=== PATIENT | female | born 1960 | race Hispanic/Latino ===

== ENCOUNTER 2020-02-13 14:25 | Emergency (ER) | payer OTHER ==
[2020-02-13] MEDS ORDERED: ACETAMINOPHEN EXTRA STRENGTH 500 MG TABLET ONE (15:24)
[2020-02-13 15:57] LABS: BASOPHILS % (AUTO) 0.3 % (0.0-5.0); HEMATOCRIT 39.1 % (36-48); MEAN CORPUSCULAR VOLUME 81.8 fL (79-99); MONOCYTES % (AUTO) 7.1 % (3.0-13.0); NEUTROPHILS % (AUTO) 64.3 % (40.0-77.0); PLATELET COUNT (AUTO) 232 K/uL (130-400); RED BLOOD CELL COUNT(AUTO) 4.78 MIL/uL (4.00-5.50); RED CELL DISTRIBUTION WIDTH 12.5 % (11.0-15.5); WHITE BLOOD COUNT (AUTO) 3.7 K/uL (4.8-10.8)
[2020-02-13 16:09] LABS: PROTHROMBIN TIME 10.8 SEC (9.6-11.6)
[2020-02-13 16:21] LABS: CREATININE 0.6 mg/dL (0.5-1.5); POTASSIUM 3.9 mmol/L (3.5-5.1)
[2020-02-13 16:27] LABS: ALBUMIN 3.2 g/dL (3.5-5.0); BILIRUBIN,TOTAL 0.5 mg/dL (0.2-1.0); CRP QUANTITATIVE 73.3 mg/L (0.00-9.0); TOTAL PROTEIN, SERUM 7.9 g/dL (6.0-8.3)
[2020-02-13 16:56] LABS: APPEARANCE,URINE Clear (CLEAR); BILIRUBIN,URINE Negative (NEGATIVE); COLOR,URINE Yellow (YELLOW); GLUCOSE, URINE (UA) Negative (NEGATIVE); KETONES,URINE 15 mg/dL (NEGATIVE); LEUKOCYTE ESTERASE ,URINE Negative (NEGATIVE); NITRATE,URINE Negative (NEGATIVE); OCCULT BLOOD,URINE Negative (NEGATIVE); PH,URINE 6.5 (5.0-8.0); PROTEIN,URINE Negative (NEGATIVE)
[2020-02-13 21:16] LABS: FERRITIN 407 ng/mL (15-150)
== END 2020-02-13 18:47 | disposition home or self-care (01) ==
LOC: EDH 14:25
DX: U07.1 COVID-19 (principal); R50.9 Fever, unspecified; R53.1 Weakness
CPT/HCPCS: 36415; 80053; 81003; 82550; 82728; 83605; 84145; 84484; 85025; 85378; 85610; 85730; 86140; 93005